=== PATIENT | female | born 1980 | race Caucasian/White ===

== ENCOUNTER → 2017-04-24 | Outpatient (CLI) | payer BC ==
[~2017-04-24] MED LIST: Iron PO; OPTIRAY 320 IV PRN; Probiotic PO; RIVA1TAB4 PO; SERT50TA PO; [UNRECOGNIZED DRUG - OTHER] PO; synthroid PO
[2017-04-24 15:03] LABS: BASO % 0.2 %; BASO ABS # 0.01 K/uL (0-0.2); EOS % 2.3 %; HEMATOCRIT 35.8 % (37-47); IG% 0.2 %; LYMPH % 25.6 %; LYMPH ABS # 1.35 K/uL (1.2-3.4); MEAN CELL VOLUME 89.5 fL (80-100); MEAN CORPUSCULAR HEMOGLOBIN 30.3 pg (25-34); MONO % 9.7 %; PLATELET COUNT 308 K/uL (130-400); WHITE BLOOD COUNT 5.27 K/uL (4.8-10.8)
[2017-04-24 15:08] LABS: COMPLETE YES; MEAN CORPUSCULAR HGB CONC 33.8 g/dl (32-36)
--- NOTE | 2017-04-24 15:35 | DIAGNOSTIC IMAGING REPORT ---
(CHEST FOR PE) ANGIO WITH HISTORY: 36-year-old female presents with acute chest pain. TECHNIQUE: Multiple CTA images of the chest were obtained after the intravenous administration of 108 ml optiray 320. Coronal and sagittal MIPS were obtained from the axial data set and were submitted for review. COMPARISON: None. FINDINGS: CTA: There is adequate opacification of the pulmonary arteries to the level of the subsegmental branches without convincing evidence of acute pulmonary embolism. The thoracic aorta is normal in course and caliber. CT CHEST: No axillary or mediastinal adenopathy by CT size criteria. Heart size is normal. The lungs are clear. There is no pneumothorax or pleural effusion. The imaged upper abdominal structures are normal. The osseous structures appear intact. There is minimal multilevel endplate spurring of the spine. IMPRESSION: No acute cardiopulmonary process, specifically no acute aortic pathology or evidence of pulmonary thromboembolic disease. Electronically signed by: Riky Grissom 04/24/2017 3:34 PM Dictated Date/Time: 04/24/2017 3:27 PM
[2017-04-24 15:37] LABS: ALB/GLOB RATIO 0.7 (0.9-2); ALKALINE PHOSPHATASE 64 U/L (45-117); ALT/SGPT 26 U/L (12-78); AST/SGOT 14 U/L (15-37); BLOOD UREA NITROGEN 9 mg/dl (7-18); BUN/CREATININE RATIO 8.9 (10-20); CALCIUM 8.8 mg/dl (8.5-10.1); CARBON DIOXIDE 28 mmol/L (21-32); CHLORIDE 105 mmol/L (98-107); GLUCOSE 95 mg/dl (70-99); POTASSIUM 4.1 mmol/L (3.5-5.1); SODIUM 139 mmol/L (136-145)
== END | disposition home or self-care (01) ==
LOC: C.CTS 14:34
PROVIDERS: ATTEND Family Medicine
DX: R00.0 Tachycardia, unspecified (principal)

== ENCOUNTER → 2017-06-05 | Outpatient (CLI) | payer BC ==
[~2017-06-05] VITALS: Ht 170.2 cm; Wt 155.1 kg
[~2017-06-05] MED LIST changes: -OPTIRAY 320 IV PRN
[2017-06-05 15:10] VITALS: BP 121/82; PULSE 83; Ht 170.2 cm; Wt 155.1 kg
== END | disposition home or self-care (01) ==
LOC: C.NEUR 14:43
PROVIDERS: ATTEND Internal Medicine Pulmonary Disease
DX: R53.83 Other fatigue (principal); G47.33 Obstructive sleep apnea (adult) (pediatric); E66.9 Obesity, unspecified

== ENCOUNTER → 2017-06-23 | Outpatient (CLI) | payer BC ==
[2017-06-23 13:36] LABS: ESTIMATED AVERAGE GLUCOSE 105 mg/dl; HA1C FLAG Normal (Normal)
[2017-06-23 13:56] LABS: ALT/SGPT 34 U/L (12-78); BLOOD UREA NITROGEN 12 mg/dl (7-18); BUN/CREATININE RATIO 12.7 (10-20); CALCIUM 9.2 mg/dl (8.5-10.1); CARBON DIOXIDE 26 mmol/L (21-32); CHLORIDE 103 mmol/L (98-107); CREATININE 0.93 mg/dl (0.60-1.20); GLUCOSE 84 mg/dl (70-99); POTASSIUM 3.9 mmol/L (3.5-5.1); SODIUM 136 mmol/L (136-145)
[2017-06-23 13:59] LABS: ALB/GLOB RATIO 0.8 (0.9-2); ALKALINE PHOSPHATASE 71 U/L (45-117); AST/SGOT 20 U/L (15-37)
[2017-06-27 20:35] LABS: IGA SERUM 164 mg/dL (81-463); TIS TRANS IGA 1 U/mL (<4)
== END | disposition home or self-care (01) ==
LOC: C.LAB1850 11:55
PROVIDERS: ATTEND Family Medicine
DX: R19.7 Diarrhea, unspecified (principal); R73.02 Impaired glucose tolerance (oral)

== ENCOUNTER → 2017-06-29 | Outpatient (CLI) | payer BC ==
--- NOTE | 2017-07-01 09:10 | POLYSOMNOGRAPH REPORT ---
CLINICAL DATA: 36-year-old female with a BMI of 55.[address] Kerns and myself with history of sleep apnea. She had difficulty tolerating CPAP. She has daytime fatigue, snoring, and witnessed apnea. On the evening of 06/29/2017, a home sleep apnea test was performed using a [employer] type 3 monitor. RECORDING RESULTS: Total recording time was 9.4 hours. The patient monitoring time and estimated sleep time was 7.6 hours. RESPIRATORY DATA: Mild sleep apnea was documented. The ARASH was 7.7. There was 1 obstructive and 3 central apneic episodes. There were 55 hypopneic episodes. The longest respiratory event was 38 seconds. OXIMETRY DATA: Minimal hypoxemia was seen. Oxygen elyse was 85%. Mean saturation was 93%. Time below 89% was 1 minute. HEART RATE DATA: Heart rates ranged from 52-69 beats per minute. SNORING DATA: Snoring was recorded throughout the night. IMPRESSION: Very mild sleep apnea/hypopnea with an ARASH of 7.7 without significant nocturnal hypoxemia. RECOMMENDATIONS: The patient may benefit from weight loss, use of an oral appliance, or use of CPAP. Clinical correlation is needed. MUNIRA
== END | disposition home or self-care (01) ==
LOC: C.NEUR 09:40
PROVIDERS: ATTEND Internal Medicine Pulmonary Disease
DX: R53.83 Other fatigue (principal); E66.9 Obesity, unspecified; G47.33 Obstructive sleep apnea (adult) (pediatric)

== ENCOUNTER → 2017-07-28 | Outpatient (CLI) | payer BC ==
[~2017-07-28] VITALS: Ht 170.2 cm; Wt 155.0 kg
[2017-07-28 14:41] VITALS: BP 122/85; PULSE 109; Ht 170.2 cm; Wt 155.0 kg
== END | disposition home or self-care (01) ==
LOC: C.NEUR 12:50
PROVIDERS: ATTEND Internal Medicine Pulmonary Disease
DX: G47.33 Obstructive sleep apnea (adult) (pediatric) (principal); E66.01 Morbid (severe) obesity due to excess calories; Z68.43 Body mass index [BMI] 50.0-59.9, adult